=== PATIENT | female | born 1980 | race Caucasian/White ===

== ENCOUNTER 2019-02-27 15:40 | Emergency (ER) | payer SELFPAY ==
--- NOTE | 2019-02-27 17:10 | ER Document Report ---
HPI - HPI Time Seen by Provider: 02/27/19 17:02 Pain Level: Denies Context: Patient is a 38-year-old female who presents to the emergency department for a suture removal. Patient states that she was supposed to have the sutures removed from her head last week but they were unable to do so. Patient states it has been healing well and does not have any head pain, drainage from the laceration or open wound. Patient denies any other complaints. - REPRODUCTIVE Reproductive: DENIES: : Past Medical History - General Information source: Patient - Social History Smoking Status: Unknown if Ever Smoked Frequency of alcohol use: None Drug Abuse: None Lives with: Spouse/Significant other Family History: None - Past Medical History Cardiac Medical History: Reports: None Pulmonary Medical History: Reports: None EENT Medical History: Reports: None Neurological Medical History: Reports: None Endocrine Medical History: Reports: None Renal/ Medical History: Reports: None Malignancy Medical History: Reports: None GI Medical History: Reports: None Musculoskeletal Medical History: Reports None Skin Medical History: Reports None Psychiatric Medical History: Reports: None Traumatic Medical History: Reports: None Infectious Medical History: Reports: None Surgical Hx: Negative Vertical Provider Document - CONSTITUTIONAL Agree With Documented VS: Yes Exam Limitations: No Limitations General Appearance: No Apparent Distress - HEENT HEENT: Atraumatic, Normocephalic, PERRLA Notes: There are 20 sutures present and a continuous uninterrupted manner to the mid forehead that extends into the scalp. There does not appear to be any swelling or erythema. The wound has healed nicely. - RESPIRATORY Respiratory: Breath Sounds Normal, No Respiratory Distress - CARDIOVASCULAR Cardiovascular: Regular Rate, Regular Rhythm - GI/ABDOMEN Gastrointestinal: Abdomen Soft, Abdomen Non-Tender, Normal Bowel Sounds - NEURO Level of Consciousness: Awake, Alert, Appropriate - DERM Integumentary: Warm, No Rash Course - Re-evaluation Re-evalutation: 02/27/19 17:47 20 sutures were removed from the forehead. No bleeding or signs of infection. 02/27/19 17:50 Patient reports a history of hypothyroidism. States she has been out of her levothyroxine for 1 month. Patient does have her medication a bottle here in the emergency department to its reads levothyroxine 50 mcg p.o. daily. - Vital Signs Vital signs: Temp Pulse Resp BP Pulse Ox 98.1 F 75 18 112/73 98 02/27/19 15:56 02/27/19 15:56 02/27/19 15:56 02/27/19 15:56 02/27/19 15:56 Discharge - Discharge Clinical Impression: Visit for suture removal Hypothyroid Qualifiers: Hypothyroidism type: unspecified Qualified Code(s): E03.9 - Hypothyroidism, unspecified Condition: Stable Disposition: HOME, SELF-CARE Additional Instructions: Today you were seen in the emergency department for suture removal. 20 sutures were removed from the wound. The laceration appears to be healing well. There is no signs of infection at this time. Please keep the scar covered, use sunscreen when out in the sun as this can cause the scarring to get worse. Please seek medical attention if you do notice any signs and symptoms of infection to include redness, swelling or drainage from the site. I have also prescribed a 30-day course of your levothyroxine as you have been out for 1 month. Please follow-up with your primary care physician as you will need to have your levels drawn to appropriately manage and potentially increase or decrease her dosage. Prescriptions: Levothyroxine Sodium 50 mcg PO DAILY #30 tablet
[2019-02-27 18:11] VITALS: BP 138/73
== END 2019-02-27 18:13 | disposition home or self-care (01) ==
LOC: ER 15:40
DX: S01.01XD Laceration without foreign body of scalp, subsequent encounter (principal); X58.XXXD Exposure to other specified factors, subsequent encounter; E03.9 Hypothyroidism, unspecified